=== PATIENT | male | born 1945 | race Caucasian/White ===

== ENCOUNTER 2020-10-27 07:26 | Day surgery (SDC) | payer MEDICARE ==
[~2020-10-27] VITALS: Ht 165.1 cm; Wt 44.4 kg
[2020-10-27 07:49] VITALS: BP 174/80
[2020-10-27] MEDS ORDERED: GADOTERATE 5 MMOL/10ML SYR ONE (10:00)
[2020-10-27] MEDS ORDERED: FENTANYL PF 100 MCG/2ML ONE (10:41)
[2020-10-27] MEDS ORDERED: MIDAZOLAM 1 MG/ML, 5ML ONE ×2 (10:41)
== END 2020-10-27 12:30 | disposition home or self-care (01) ==
LOC: OUT 07:26 → EDSTATUS 09:30 → OUT 12:30
PROVIDERS: ATTEND Specialist
DX: C34.32 Malignant neoplasm of lower lobe, left bronchus or lung (principal); I10 Essential (primary) hypertension; E78.5 Hyperlipidemia, unspecified; I25.2 Old myocardial infarction; J44.9 Chronic obstructive pulmonary disease, unspecified; Z79.82 Long term (current) use of aspirin; Z79.899 Other long term (current) drug therapy; Z87.891 Personal history of nicotine dependence; Z95.5 Presence of coronary angioplasty implant and graft; Z82.49 Family history of ischemic heart disease and other diseases of the circulatory system; Z80.3 Family history of malignant neoplasm of breast
CPT/HCPCS: 70553; 99156; 99157; A9575; J2250; J3010

== ENCOUNTER 2020-11-08 07:39 | Day surgery (SDC) | payer MEDICARE ==
[~2020-11-08] VITALS: Ht 165.1 cm; Wt 43.6 kg
[2020-11-08] MEDS ORDERED: SODIUM CHLORIDE 0.9% 1,000 ML IV SCH (08:30)
[2020-11-08 08:32] VITALS: BP 168/77
[2020-11-08] MEDS ORDERED: CLOP75TA52 PO (08:32)
[2020-11-08] MEDS ORDERED: METOPROLOL PO (08:32)
[2020-11-08] MEDS ORDERED: INHALER INH (08:32)
[2020-11-08] MEDS ORDERED: ASPI81TA45 PO (08:32)
[2020-11-08] MEDS ORDERED: ATOR40TA78 PO (08:32)
[2020-11-08] MEDS ORDERED: AMLO-150 PO (08:32)
[2020-11-08] MEDS ORDERED: LISI-170 PO (08:32)
[2020-11-08] MEDS ORDERED: LIDOCAINE 1%, 10ML ONE ×2 (10:07→13:47)
[2020-11-08] MEDS ORDERED: FENTANYL PF 100 MCG/2ML ONE ×2 (10:07→13:52)
[2020-11-08] MEDS ORDERED: FLUMAZENIL 0.1 MG/1 ML, 5ML ONE ×2 (10:07→13:52)
[2020-11-08] MEDS ORDERED: MIDAZOLAM 1 MG/ML, 5ML ONE ×2 (10:07→13:52)
[2020-11-08] MEDS ORDERED: NALOXONE 1 MG/ML, 2ML ONE ×2 (10:07→13:52)
[2020-11-08] MEDS ORDERED: morphine SULFATE 10 MG/ML, 1ML IVPush PRN (14:00)
[2020-11-08] MEDS ORDERED: IBUPROFEN 600 MG TABLET ONE (15:29)
[2020-11-08] MEDS ORDERED: IBUPROFEN 600 MG TABLET PO PRN (16:00)
== END 2020-11-08 16:45 | disposition home or self-care (01) ==
LOC: OUT 07:39
PROVIDERS: ATTEND Specialist
DX: C34.32 Malignant neoplasm of lower lobe, left bronchus or lung (principal); J84.10 Pulmonary fibrosis, unspecified; J98.4 Other disorders of lung; J44.9 Chronic obstructive pulmonary disease, unspecified; I10 Essential (primary) hypertension; I25.2 Old myocardial infarction; Z79.82 Long term (current) use of aspirin; Z79.899 Other long term (current) drug therapy; Z87.891 Personal history of nicotine dependence; Z90.49 Acquired absence of other specified parts of digestive tract; Z80.3 Family history of malignant neoplasm of breast; Z80.0 Family history of malignant neoplasm of digestive organs; Z82.49 Family history of ischemic heart disease and other diseases of the circulatory system
CPT/HCPCS: 32408; 32557; 71045; 88305; 88333; 99156; 99157; C1729; J2250; J3010; J7030; 32551; 77012; J2310

== ENCOUNTER 2020-11-11 10:11 | Outpatient (CLI) | payer MEDICARE | END 2020-11-11 23:59 | disposition home or self-care (01) | LOC: RAD 10:11 | PROVIDERS: ATTEND Radiology Diagnostic Radiology | DX: Z48.03 Encounter for change or removal of drains (principal) ==

== ENCOUNTER 2020-11-13 07:30 | Outpatient (CLI) | payer MEDICARE ==
[~2020-11-13 07:30] MED LIST: AMLO-150 PO; ASPI81TA45 PO; ATOR40TA78 PO; CLOP75TA52 PO; INHALER INH; LISI-170 PO; METOPROLOL PO
== END 2020-11-13 23:59 | disposition home or self-care (01) ==
LOC: ROC 07:30
PROVIDERS: ATTEND Radiology Radiation Oncology
DX: C34.32 Malignant neoplasm of lower lobe, left bronchus or lung (principal); J44.9 Chronic obstructive pulmonary disease, unspecified; I10 Essential (primary) hypertension; E78.5 Hyperlipidemia, unspecified; I25.2 Old myocardial infarction; Z79.82 Long term (current) use of aspirin; Z79.899 Other long term (current) drug therapy; Z87.891 Personal history of nicotine dependence; Z95.1 Presence of aortocoronary bypass graft
CPT/HCPCS: G0463